=== PATIENT | female | born 1950 | race Caucasian/White ===

== ENCOUNTER 2017-10-07 10:27 | Emergency (ER) | payer OTHER ==
--- NOTE | 2017-10-07 10:43 | UC ---
Skin Complaint HPI - HPI Summary HPI Summary: 67 yo female presents with insect bite to right wrist. She tells me that about 1 week ago she was outside working in her yard and contracted poison ty on her upper arms, chest, and neck. This is improving well, but during that time she noticed a black insect on her right wrist that she brushed off. The next day the area became red, swollen, and tender with clear drainage. Since that time she feels it has gotten larger and more painful - she also admits to trying to squeeze it often. Has been applying neosporin and a band-aid. Denies fever/ chills. - History of Current Complaint Time Seen by Provider: 10/07/17 10:43 Stated Complaint: INSECT BITE Hx Obtained From: Patient Onset/Duration: Gradual Onset Onset Severity: Mild Current Severity: Mild Pain Intensity: 4 Pain Scale Used: 0-10 Numeric - Allergy/Home Medications Allergies/Adverse Reactions: Allergies Allergy/AdvReac Type Severity Reaction Status Date / Time cat dander Allergy Unknown Verified 10/07/17 10:41 Reaction Details Review of Systems Constitutional: Negative Skin: Other - Bug bite right wrist Respiratory: Negative Cardiovascular: Negative Gastrointestinal: Negative Neurological: Negative Psychological: Negative All Other Systems Reviewed And Are Negative: Yes PMH/Surg Hx/FS Hx/Imm Hx Endocrine History: Hypothyroidism - Surgical History Surgical History: Yes Surgery Procedure, Year, and Place: D & C. EXPLORATORY LAP - INFERTILITY. [facility] - Family History Known Family History: Positive: None - Social History Occupation: Retired Lives: With Family Alcohol Use: Occasionally Substance Use Type: None Smoking Status (MU): Never Smoked Tobacco Physical Exam - Summary Physical Exam Summary: GENERAL: NAD. WDWN. No pain distress. SKIN: Right volar wrist: 5mm diameter of mild erythema, edema, and blistering. Mild TTP. No streaking, bleeding, or active drainage. NECK: Supple. Nontender. No lymphadenopathy. CHEST: No accessory muscle use. Breathing comfortably and in no distress. CV: Pulses intact. NEURO: Alert. CN II-XII grossly intact. PSYCH: Age appropriate behavior. Triage Information Reviewed: Yes Vital Signs: Vital Signs: Temp Pulse Resp BP Pulse Ox 98.6 F 80 16 158/99 98 10/07/17 10:42 10/07/17 10:42 10/07/17 10:42 10/07/17 10:42 10/07/17 10:42 Course/Dx - Course Course Of Treatment: Bug bite right wrist - Diagnoses Provider Diagnoses: Bug bite right wrist Discharge - Sign-Out/Discharge Documenting (check all that apply): Discharge/Admit/Transfer - Discharge Plan Condition: Stable Disposition: HOME Prescriptions: Cephalexin CAP* [Keflex CAP*] 500 mg PO BID #10 cap Patient Education Materials: Insect Bite or Sting (ED) Referrals: Deshaun Venegas MD [Primary Care Provider] - Additional Instructions: If you develop a fever, shortness of breath, chest pain, new or worsening symptoms - please call your PCP or go to the ED. Your blood pressure was high at todays visit. Please see your primary provider within 4 weeks for recheck and re-evaluation. - Billing Disposition and Condition Condition: STABLE Disposition: Home
[2017-10-07 10:44] VITALS: BP 158/99
== END 2017-10-07 11:00 | disposition home or self-care (01) ==
LOC: UCEAST 10:27
DX: S60.861A Insect bite (nonvenomous) of right wrist, initial encounter (principal); Z91.09 Other allergy status, other than to drugs and biological substances; W57.XXXA Bitten or stung by nonvenomous insect and other nonvenomous arthropods, initial encounter; Y92.9 Unspecified place or not applicable
CPT/HCPCS: 99212; G0463

== ENCOUNTER 2017-10-24 05:51 | Day surgery (SDC) | payer OTHER ==
--- NOTE | 2017-10-06 09:22 | HP ---
HISTORY AND PHYSICAL: DATE OF ADMISSION/SURGERY: 10/24/17 DATE OF OFFICE VISIT: 09/25/17 SURGEON: Ciara Rose MD* (LANETTE Hdz). PROCEDURE: Right knee arthroscopy with partial lateral meniscectomy, possible chondroplasty, possible synovectomy. CHIEF COMPLAINT: Right knee pain. HISTORY OF PRESENT ILLNESS: Ms. Carney is a 67-year-old female with continued complaints of right lateral knee pain and MRI confirms the lateral meniscus tear and she has elected to proceed with right knee arthroscopy, which is scheduled for 10/24/[address] Rose. PAST MEDICAL HISTORY: Hypothyroidism and essential tremor. PAST SURGICAL HISTORY: Urethral surgery, laparoscopy, cone biopsy, and D and C. CURRENT MEDICATIONS: 1. Naprosyn 500 mg twice a day as needed. 2. Ubiquinol. 3. Turmeric. 4. Quercetin/bromelain. 5. Vitamin B12. 6. Synthroid 100 mcg daily. 7. Multivitamin. 8. Vitamin D3. 9. Vitamin C. 10. Calcium. 11. Amoxicillin. ALLERGIES: No known drug allergies. FAMILY HISTORY: Hypertension, colon cancer, and stroke. SOCIAL HISTORY: A 67-year-old female, lives with her . She does not smoke or use drugs. Uses alcohol rarely. REVIEW OF SYSTEMS: A complete 14-point review of systems was reviewed with the patient. It is positive for hypothyroidism. She denies history of DVT, PE, hepatitis, HIV, or anesthesia problems. PHYSICAL EXAMINATION GENERAL: She is well developed, well nourished, in no acute distress. VITAL SIGNS: She stands 5 feet 5 inches tall, weighs 165 pounds. Her blood pressure is 126/64 and her heart rate is 68. HEENT: Normocephalic, atraumatic. NECK: Supple. No palpable lymph nodes. PULMONARY: The lungs are clear to auscultation bilaterally. CARDIO: Regular rate and rhythm. Strong S1, S2. ABDOMEN: Soft, nontender, nondistended. NEUROLOGICAL: She is alert and oriented x3. MUSCULOSKELETAL: Right lower extremity: The skin is intact. There are no open wounds or abrasions. There is some moderate joint effusion. She has some tenderness over the lateral joint line. She has positive Lisbeth's. 2+ dorsalis pedis pulses, intact sensation in her lower extremity. Muscle group strengths are intact at 5/5. ASSESSMENT AND PLAN: Ms. Carney is a 67-year-old female with continued complaints of right knee pain. She has failed conservative management and an MRI confirms the lateral meniscus tear. She has elected to proceed with right knee arthroscopy with partial lateral meniscectomy, possible chondroplasty, possible synovectomy. The surgery is scheduled for 10/24/[address] Rose discussed the risks and benefits of the surgery at today's visit and all of her questions were answered. She will follow up with Dr. Rose 2 weeks after the surgery. LANTETE HDZ [id number]/[facility] #: [id number] MTDD
[~2017-10-24 05:51] MED LIST: Buffered Lidocaine 0.9% SYRIN* 5 ML/SYR SYRINGE INTRADERM ONE
[2017-10-24] MEDS ORDERED: ceFAZolin 2 GM PREMIX (*) 2 GM/50 ML BAG IVPB ONE (06:07)
[2017-10-24] MEDS ORDERED: EPINEPHrine SYR 0.1 MG/ML* (1:10,000) SYRINGE ONE (06:31)
[2017-10-24] MEDS ORDERED: Lidocaine 2% PF * 5 ML VIAL ONE (06:31)
[2017-10-24] MEDS ORDERED: Midazolam* 1 MG/ML 2 ML VIAL (2 MG) ONE (06:31)
[2017-10-24] MEDS ORDERED: Propofol* 10 MG/ML 20 ML BTL IV PUSH ONE (06:31)
[2017-10-24] MEDS ORDERED: fentaNYL* 50 MCG/ML 2 ML VIAL (100 MCG VIAL) ONE (06:32)
[2017-10-24] MEDS ORDERED: Sterile Water for Inj* 10 ML ONE (06:36)
[2017-10-24] MEDS ORDERED: methylPREDNISolone ACETATE 80* 80 MG/ML 1 ML VIAL ONE (06:54)
[2017-10-24] MEDS ORDERED: Propofol* 500 MG/50 ML BTL ONE (06:54)
[2017-10-24] MEDS ORDERED: Bupivacaine 0.25% SDV PF* 10 ML VIAL INJ ONE (06:55)
[2017-10-24] MEDS ORDERED: EPINEPHRINE 1 MG/ML 1 ML VIAL ONE (06:55)
[2017-10-24] MEDS ORDERED: KETAMINE HCL* 50 MG/ML 10 ML VIAL ONE (06:55)
[2017-10-24] MEDS ORDERED: Chloroprocaine 2%* 20 ML VIAL ONE ×2 (07:02)
[2017-10-24] MEDS ORDERED: EPHEDrine (Pressors)* 50 MG/ML VIAL ONE (07:50)
[2017-10-24] MEDS ORDERED: Ondansetron INJ* 2 MG/ML VIAL ONE (08:11)
[2017-10-24] MEDS ORDERED: Ketorolac INJ* 30 MG/ML 1 ML VIAL ONE (08:11)
[2017-10-24] MEDS ORDERED: Naloxone* 0.4 MG/ML 1 ML VIAL IV PRN (08:48)
[2017-10-24] MEDS ORDERED: fentaNYL* 50 MCG/ML 2 ML VIAL (100 MCG VIAL) IV PRN (08:48)
[2017-10-24] MEDS ORDERED: Acetaminophen TAB* 325 MG PO PRN (08:48)
[2017-10-24 11:02] VITALS: BP 141/82
--- NOTE | 2017-10-25 13:02 | OP ---
DATE OF OPERATION: 10/24/17 - [facility] DATE OF : 46 ATTENDING SURGEON: Ciara Rose MD CLEANING MATRON: LANETTE Hdz. Ms. Aleman did help throughout the procedure with preparation of the leg, wound retraction, manipulation of the knee, and wound closure. ANESTHESIOLOGIST: Dr. Roth. ANESTHESIA: Spinal. PRE-OP DIAGNOSES: Right knee osteoarthritis, lateral meniscal tear. POST-OP DIAGNOSES: Right knee complex lateral meniscal tear, lateral and patellofemoral moderate osteoarthritis, medial plica with impingement. OPERATIVE PROCEDURE: Right knee arthroscopy with partial lateral meniscectomy, patellofemoral chondroplasty, medial plica excision. BRIEF HISTORY/INDICATION: Ms. Carney is a 67-year-old female who had a twisting injury to the right knee in June 2017 when she fell over her dog. Since that time, she has had recurrent pain and swelling in the right knee with mechanical symptoms. MRI confirmed a lateral meniscal tear and the patient failed conservative treatment. She elected to undergo right knee arthroscopy with possible partial meniscectomies, possible chondroplasty, possible synovectomies. Informed consent was obtained from the patient. She understood the risks of surgery included, but were not limited to, bleeding, infection, damage to nearby structures, continued pain, need for further surgery, retear of the meniscus, continued progression of arthritis, stroke, heart attack, blood clot, and . She wished to proceed. INTRAOPERATIVE FINDINGS: Intraoperatively, the patient was noted to have a complex tear involving the red-white zone of the body and anterior lateral meniscus. Several fragments did displace into the joint space. She had grade 2 and 3 Outerbridge cartilage changes in the patellofemoral and lateral compartment. She had some cartilage fraying and flapping along the lateral patellar facet. She also had a large medial plica with inflamed synovium, which did impinge with range of motion. No obvious medial meniscal tear. No obvious loose bodies. ESTIMATED BLOOD LOSS: Less than 25 cc. COMPLICATIONS: None. HARDWARE: None. SPECIMENS: None. DESCRIPTION OF PROCEDURE: Mr. Carney was identified in the preanesthesia unit. Her right lower extremity was marked as a correct operative side. Informed consent was signed and placed in the chart. The patient was taken to the operating room and placed under spinal anesthesia. Right lower extremity was prepped and draped in the usual sterile fashion. Preop time-out was made to correctly identify the patient's side and site. Appropriate perioperative antibiotics were given within 1 hour of incision. A 1.5 cm anterolateral portal incision was made with 15-blade and carried down to the capsule. The trocar was introduced. As soon as the light and water sources were turned on, there was immediate visualization of the supra-patellar pouch. A tour of the knee joint was performed. Suprapatellar pouch had no obvious abnormality. Patellofemoral compartment showed grade 2 and 3 Outerbridge cartilage changes with a small cartilage flap along the lateral patellar facet. There was some grade 2 and 3 Outerbridge cartilage changes along the femoral trochlea. There was a large amount of synovitis and a medial plica visualized that did impinge with range of motion, no loose body in the medial gutter. Medial compartment showed no obvious meniscal tear and no significant degenerative changes. There was intact ACL and PCL. The knee was placed in a znsqzg-wd-cear position. There was a large complex tear involving the majority of the lateral meniscus body and the anterior horn. Some fragments did displace into the joint. There was grade 2 and 3 Outerbridge cartilage changes along the lateral tibial plateau cartilage. Lateral gutter showed no loose body or plica. Under direct visualization, a medial portal incision was made with a 15-blade. A probe was introduced. A new tour of the knee joint was performed. Once again , no medial meniscus tear was identified posteriorly. Probing of the lateral meniscus did slip a small parrot-beak type tear back into the joint space that had been displaced into the posterolateral capsular recess. A shaver was introduced. Soft tissue inflammation was cleared from the anterior joint line to improve visualization. Shaver and radiofrequency ablation wand were used to perform patellofemoral chondroplasty conservatively. The lateral patellar facet cartilage flap was carefully smoothed. Next, the medial plica and synovitis were conservatively excised until there was no further impingement with range of motion. The knee was placed in a [id number]-zg-duxs position. Straight biter and shaver were used to perform partial lateral meniscectomy in the white-red zone. A smooth border of the meniscus was obtained. Further probing of the lateral meniscus showed no additional tears and stable meniscus. The knee was copiously irrigated with sterile saline. All instruments were removed. Incisions were closed using interrupted 3-0 nylon suture. Intra- articular injection of 80 mg Depo-Medrol and 6 cc of 0.25% Marcaine was placed in the knee joint. Sterile Xeroform, 4x4s, and Webril were used to cover the incision. Ivan wrap and cold pack were placed to over this. The patient's anesthesia was reversed without difficulty. She was taken to the PACU in stable condition. Intended weightbearing will be weightbearing as tolerated. Intended DVT prophylaxis will be aspirin. She will follow up in clinic in 2 weeks' time for suture removal. [id number]/[facility] #: [id number] YVONNE
== END 2017-10-24 11:33 | disposition home or self-care (01) ==
LOC: OR 05:51
PROVIDERS: ATTEND Orthopaedic Surgery Adult Reconstructive Orthopaedic Surgery
DX: S83.281A Other tear of lateral meniscus, current injury, right knee, initial encounter (principal); M67.51 Plica syndrome, right knee; M17.11 Unilateral primary osteoarthritis, right knee; E03.9 Hypothyroidism, unspecified; G25.0 Essential tremor; W01.0XXA Fall on same level from slipping, tripping and stumbling without subsequent striking against object, initial encounter; Y93.89 Activity, other specified; Y92.89 Other specified places as the place of occurrence of the external cause
CPT/HCPCS: J0171; J0690; J1040; J1885; J2250; J2400; J2405; J2704; J3010; J3490

== ENCOUNTER 2018-10-23 08:13 | Emergency (ER) | payer MEDICARE, OTHER ==
[2018-10-23 08:36] VITALS: BP 128/88
--- NOTE | 2018-10-23 08:49 | UC ---
Skin Complaint HPI - HPI Summary HPI Summary: 68-year-old woman comes in with a chief complaint of a rash her left lower leg. Patient notices a little less than a week ago. She has been outside quite a bit. Denies seeing any ticks. Initially started as a small punctate area and its gradually gotten bigger. No fevers or chills feels well otherwise. - History of Current Complaint Chief Complaint: UCSkin Time Seen by Provider: 10/23/18 08:40 Stated Complaint: LT LEG BUGBITE Pain Intensity: 0 - Allergy/Home Medications Allergies/Adverse Reactions: Allergies Allergy/AdvReac Type Severity Reaction Status Date / Time cat dander Allergy Unknown Verified 10/23/18 08:36 Reaction Details environmental Allergy watery Uncoded 10/23/18 08:36 eyes, sneezing PMH/Surg Hx/FS Hx/Imm Hx Previously Healthy: Yes Endocrine History: Hypothyroidism - Surgical History Surgical History: Yes Surgery Procedure, Year, and Place: D & C. EXPLORATORY LAP - INFERTILITY. [facility] - Family History Known Family History: Positive: None - Social History Alcohol Use: Daily Alcohol Amount: 1 glass wine at night Substance Use Type: None Smoking Status (MU): Never Smoked Tobacco Review of Systems All Other Systems Reviewed And Are Negative: Yes Constitutional: Positive: Negative Skin: Positive: Other - SEE HPI Eyes: Positive: Negative ENT: Positive: Negative Respiratory: Positive: Negative Cardiovascular: Positive: Negative Gastrointestinal: Positive: Negative Motor: Positive: Negative Neurovascular: Positive: Negative Musculoskeletal: Positive: Negative Neurological: Positive: Negative Psychological: Positive: Negative Is Patient Immunocompromised?: No Physical Exam Triage Information Reviewed: Yes Appearance: Well-Appearing, No Pain Distress, Well-Nourished Vital Signs: Initial Vital Signs Temp 99.4 F 10/23/18 08:32 Pulse 81 10/23/18 08:32 Resp 16 10/23/18 08:32 BP 128/88 10/23/18 08:32 Pulse Ox 100 10/23/18 08:32 Vital Signs Reviewed: Yes Eye Exam: Normal Eyes: Positive: Conjunctiva Clear Neck: Positive: Supple Respiratory: Positive: No respiratory distress Musculoskeletal: Positive: Strength Intact, ROM Intact Neurological: Positive: Alert, Muscle Tone Normal Psychological: Positive: Age Appropriate Behavior Skin: Positive: Other - On the left lower leg on the anterior aspect on the watson there is a flat erythematous rash. Is 10 cm in diameter. Centers ecchymotic and nonblanching. The periphery is embroidery finisher shade and is blanching. It is tender to palpation. There is no drainage. No proximal streaking. Course/Dx - Course Course Of Treatment: The rash appears to be cellulitic role than a bull's-eye rash. I discussed with the patient that if she got worse she needs to get reevaluated. - Diagnoses Provider Diagnosis: Cellulitis of leg, left Discharge - Sign-Out/Discharge Documenting (check all that apply): Patient Departure All imaging exams completed and their final reports reviewed: No Studies - Discharge Plan Condition: Stable Disposition: HOME Prescriptions: DOXYcycline CAP(*) [DOXYcycline 100MG CAP(*)] 100 mg PO BID #20 cap Patient Education Materials: Cellulitis (ED) Referrals: Deshaun Venegas MD [Primary Care Provider] - Additional Instructions: FOLLOW UP WITH YOUR DOCTOR IF NOT COMPLETELY IMPROVED. GO TO THE EMERGENCY DEPARTMENT IF YOUR CONDITION WORSENS; FEVER, YOU FEEL ILL, SPREAD OF INFECTION OR ANY QUESTIONS OR CONCERNS. - Billing Disposition and Condition Condition: STABLE Disposition: Home
== END 2018-10-23 08:52 | disposition home or self-care (01) ==
LOC: UCEAST 08:13
DX: L03.116 Cellulitis of left lower limb (principal); E03.9 Hypothyroidism, unspecified
CPT/HCPCS: 99212; G0463

== ENCOUNTER 2018-12-08 11:35 | Emergency (ER) | payer MEDICARE ==
--- OUTSIDE RECORDS SUMMARY | 2018-12-08 11:40 | XMS REPORT | Continuity of Care Document ---
:1950 External Reference #:[id number] Author Name Deshaun Venegas M.D. (transmitted by agent of provider Omaira Julien) Address [address] [facility], [place] [address] Care Team Providers Name Role Phone Deshaun Venegas III, MD - Internal Care Team Information Medical Sales Consultant Medicine Malik Wynn MD - Internal Care Team Information Medical Sales Consultant Medicine Carmita Black MD - Obstetrics & Care Team Information Medical Sales Consultant Gynecology Keon Art MD - Gastroenterology Care Team Information Medical Sales Consultant Problems Active Problems Provider Date Hypothyroidism Malik Wynn M.D.,FACP Onset: 04/06/2009 Mixed hyperlipidemia Malik Wynn M.D.,FACP Onset: 04/06/2009 Essential tremor Malik Wynn M.D.,FACP Onset: 04/06/2009 Cobalamin deficiency Malik Wynn M.D.,FACP Onset: 02/07/2013 Sprain of medial collateral ligament Ciara Rose M.D. Onset: 08/30/2017 of knee Current tear of medial cartilage Ciara Rose M.D. Onset: 08/30/2017 AND/OR meniscus of knee Peripheral tear of lateral meniscus, Ciara Rose M.D. Onset: 09/18/2017 current injury, right knee, subsequent encounter Social History Type Date Description Comments Sex Unknown Tobacco Use Start: Unknown Never Smoked Cigarettes ETOH Use 11/19/2012 consumes 1-2 glasses of wine per day Recreational Drug Use Denies Drug Use Tobacco Use Start: Unknown Patient has never smoked Smoking Status Reviewed: 11/12/18 Patient has never smoked Exercise Type/Frequency Exercises sporadically walks in [place] Allergies, Adverse Reactions, Alerts Active Allergies Reaction Severity Comments Date Bee Pollen 11/12/2018 Cat 11/12/2018 Mold 11/12/2018 Inactive Allergies NKDA 04/09/2007 Medications Active Medications SIG Qnty Indications Ordering Date Provider Levothyroxine Sodium 1 by mouth 90tabs E03.9 Deshaun Parker 11/12/2018 every day Wendy Venegas 100mcg Tablets Ubiquinol 1po qd prn Deshaun Parker 11/08/2016 Wendy Venegas Turmeric/Curcuroin daily Deshaun Parker 11/08/2016 Wendy Venegas Quercetin/Bromalain daily as needed Deshaun Parker 11/08/2016 Wendy Venegas Vitamin B-12 by mouth every 1000tabs Malik Hall 04/29/2014 1000mcg day 3 tablets Wendy Wynn,FACP Tablets Sub Multivitamins 1 PO qd 30tabs Juan A Barrett MD Tablets Vitamin D3 1 cap daily 4caps Unknown 2000Unit Capsules Vitamin C 1 po bid Unknown 500mg Capsules Calcium Unknown Benadryl Allergy at hs prn Unknown 25mg Capsules Medications Administered in Office Medication SIG Qnty Indications Ordering Provider Date Depomedrol 40MG Ciara Rose M.D. 08/30/2017 Injection B-12 Injection Nurse Visit Means 01/20/2014 Injection B-12 Injection Nurse Visit Means 12/17/2013 Injection B-12 Injection Nurse Visit Means 11/14/2013 Injection B-12 Injection Nurse Visit Means 10/16/2013 Injection B-12 Injection Nurse Visit Means 09/16/2013 Injection B-12 Injection Nurse Visit Means 08/19/2013 Injection B-12 Injection Nurse Visit Means 07/12/2013 Injection B-12 Injection Nurse Visit Means 06/11/2013 Injection B-12 Injection Nurse Visit Means 05/15/2013 Injection B-12 Injection Nurse Visit Means 04/16/2013 Injection B-12 Injection Nurse Visit Means 03/05/2013 Injection B-12 Injection Malik Wynn 02/07/2013 Injection Wendy,FACP B-12 Injection Nurse Visit Means 01/15/2013 Injection B-12 Injection Nurse Visit Means 01/01/2013 Injection B-12 Injection Nurse Visit Means 12/18/2012 Injection B-12 Injection Nurse Visit Means 12/04/2012 Injection Immunizations CPT Code Status Date Vaccine Lot # [id number] Given 03/06/2012 Fluvirin Im 3Yrs And Older [id number] Given 06/30/2011 Tdap - Tetanus/Diptheria/Acellular Pertussis [id number] Given 11/17/2004 Tetanus And Diptheria (Td) For Adult Use Preservative Free Vital Signs Date Vital Result Comment 11/12/2018 9:08am Height 65 inches 5'5" Weight 158.00 lb Heart Rate 71 /min BP Systolic Sitting 145 mmHg Rue reg cuff BP Diastolic Sitting 96 mmHg Rue reg cuff O2 % BldC Oximetry 98 % BMI (Body Mass Index) 26.3 kg/m2 01/22/2018 3:37pm Height 65 inches 5'5" Weight 167.38 lb Heart Rate 87 /min BP Systolic Sitting 116 mmHg BP Diastolic Sitting 67 mmHg O2 % BldC Oximetry 98 % BMI (Body Mass Index) 27.8 kg/m2 Results Description No Information Available Procedures Date Code Description Status 05/08/2014 290284820 Bone Mineral Density Test Completed 04/25/2013 [id number] Colonoscopy Completed 06/23/2009 [id number] Bone Mineral Density Test Completed 06/22/2009 12698637 Mammogram Completed Medical Devices Description No Information Available Encounters Description No Information Available Assessments Date Code Description Provider 11/12/2018 Z00.00 Encounter for general adult medical Deshaun Venegas M.D. examination without abnormal findings 11/12/2018 E03.9 Hypothyroidism, unspecified Deshaun Venegas M.D. 11/12/2018 E78.00 Pure hypercholesterolemia, unspecified Deshaun Venegas M.D. 11/12/2018 R73.01 Impaired fasting glucose Deshaun Venegas M.D. 11/12/2018 M85.89 Other specified disorders of bone density Deshaun Venegas M.D. and structure, multiple sites 11/12/2018 Z12.11 Encounter for screening for malignant Deshaun Venegas M.D. neoplasm of colon 11/12/2018 R03.0 Elevated blood-pressure reading, without Deshaun Venegas M.D. diagnosis of hypertension Plan of Treatment 11/12/2018 - Deshaun Venegas M.D.Z00.00 Encounter for general adult medical examination without abnormal rfwonjpwP80.9 Hypothyroidism, unspecifiedNew Medication:Levothyroxine Sodium 100 mcg - 1 by mouth every dayE78.00 Pure hypercholesterolemia, tahhbudtobrR66.01 Impaired fasting ulanmikH54.89 Other specified disorders of bone density and structure, multiple khimqG80.11 Encounter for screening for malignant neoplasm of colonReferral:Keon Art MD, PubdchvltvipvgqbK56.0 Elevated blood-pressure reading, without diagnosis of hypertension Functional Status Description No Information Available Mental Status Description No Information Available Referrals Refer to Reason for Referral Status Appt Date Keon Art MD due for a repeat colon exam Sent [address] [place] [phone]
[2018-12-08] MEDS ORDERED: Lidocaine 1% w EPI 1:100,000* MDV 20 ML VIAL INJ ONE (12:18)
[2018-12-08] MEDS ORDERED: Tetan/Diph/Pertus SYR(Tdap)* 0.5 ML SYR(BOOSTRIX) use SYR IM ONE (12:18)
--- NOTE | 2018-12-08 12:25 | UC ---
Lower Extremity/Ankle HPI - HPI Summary HPI Summary: 68 yo female stepped on a splinter about a week ago initially not too painful now swollen and worsening pain - History of Current Complaint Chief Complaint: UCForeignBody Stated Complaint: SPLINTER IN L FOOT Time Seen by Provider: 12/08/18 12:11 Hx Obtained From: Patient Onset/Duration: Sudden Onset, Lasting Days Severity Initially: Mild Severity Currently: Mild Pain Intensity: 1 Pain Scale Used: 0-10 Numeric Aggravating Factor(s): Standing, Ambulation Alleviating Factor(s): Rest Able to Bear Weight: Yes Feet (Multiple View): 1 - FB - Allergies/Home Medications Allergies/Adverse Reactions: Allergies Allergy/AdvReac Type Severity Reaction Status Date / Time cat dander Allergy Unknown Verified 12/08/18 11:59 Reaction Details environmental Allergy watery Uncoded 12/08/18 11:59 eyes, sneezing Home Medications: Home Medications Levothyroxine TAB* [Synthroid TAB*] 100 mcg PO DAILY 12/08/18 [History Confirmed 12/08/18] PMH/Surg Hx/FS Hx/Imm Hx Previously Healthy: Yes Endocrine History: Hypothyroidism - Surgical History Surgical History: Yes Surgery Procedure, Year, and Place: [facility] EXPLORATORY LAP - [facility]ERT[facility]. [facility] - Family History Known Family History: Positive: None, Non-Contributory - Social History Alcohol Use: Daily Alcohol Amount: 1 glass wine at night Substance Use Type: None Smoking Status (MU): Never Smoked Tobacco Review of Systems All Other Systems Reviewed And Are Negative: Yes Constitutional: Positive: Negative Skin: Positive: Negative Eyes: Positive: Negative ENT: Positive: Negative Respiratory: Positive: Negative Cardiovascular: Positive: Negative Gastrointestinal: Positive: Negative Genitourinary: Positive: Negative Motor: Positive: Negative Neurovascular: Positive: Negative Musculoskeletal: Positive: Negative Neurological: Positive: Negative Psychological: Positive: Negative Physical Exam Triage Information Reviewed: Yes Appearance: Well-Appearing, No Pain Distress, Well-Nourished Vital Signs: Initial Vital Signs Temp 98.7 F 12/08/18 12:01 Pulse 88 12/08/18 12:01 Resp 16 12/08/18 12:01 BP 0/0 12/08/18 12:01 Pulse Ox 100 12/08/18 12:01 Vital Signs Reviewed: Yes Eyes: Positive: Conjunctiva Clear ENT: Positive: Hearing grossly normal. Negative: Nasal congestion, Nasal drainage, Tonsillar swelling, Tonsillar exudate Neck: Positive: Supple, Nontender Respiratory: Positive: Lungs clear, Normal breath sounds, No respiratory distress Cardiovascular: Positive: RRR, No Murmur Bowel Sounds: Positive: Present Musculoskeletal: Positive: ROM Intact, No Edema Neurological: Positive: Alert Psychological Exam: Normal Skin: Positive: Other - see image Procedures - Procedure Summary Procedure Summary: Foreign body removal Left foot time out sterile prep anesth with 1 cc juan antonio plus epi splinter removed with an 18 g needle tolerated procedure well Lower Extremity Course/Dx - Differential Dx/Diagnosis Provider Diagnosis: Soft tissues foreign body Discharge ED - Sign-Out/Discharge Documenting (check all that apply): Patient Departure All imaging exams completed and their final reports reviewed: No Studies - Discharge Plan Condition: Stable Disposition: HOME Prescriptions: Cephalexin CAP* [Keflex CAP*] 500 mg PO QID #12 cap Patient Education Materials: Soft Tissue Foreign Body (ED) Referrals: Deshaun Venegas MD [Primary Care Provider] - 4 Days (if not completley better) - Billing Disposition and Condition Condition: STABLE Disposition: Home
[2018-12-08 12:46] VITALS: BP 146/60
== END 2018-12-08 13:00 | disposition home or self-care (01) ==
LOC: UCEAST 11:35
DX: S90.852A Superficial foreign body, left foot, initial encounter (principal); W45.8XXA Other foreign body or object entering through skin, initial encounter; Y92.9 Unspecified place or not applicable; Z23 Encounter for immunization; E03.9 Hypothyroidism, unspecified
CPT/HCPCS: 90471; 90715; 99212; G0463